=== PATIENT | female | born 1935 | race Caucasian/White ===

== ENCOUNTER → 2016-08-19 | Outpatient (CLI) | payer OTHER ==
[~2016-08-19] MED LIST: ACET325T96 PO; ADVIN50/60 INH; ALBINS/ INH; ASPI325T39 PO; LISI-729 PO; MONT1TAB5 PO; MULT-506 PO; OMAL150S INJ; PRLSR20 PO; SPRIN/30 INH; VNTHFA/IN INH
[2016-08-19 12:21] LABS: BASO % 0.5 %; BASO ABS # 0.04 K/uL (0-0.2); COMPLETE YES; EOS % 3.7 %; HEMATOCRIT 43.8 % (37-47); IG% 0.3 %; LYMPH % 30.4 %; LYMPH ABS # 2.39 K/uL (1.2-3.4); MEAN CELL VOLUME 91.8 fL (80-100); MEAN CORPUSCULAR HEMOGLOBIN 28.9 pg (25-34); MEAN CORPUSCULAR HGB CONC 31.5 g/dl (32-36); MEAN PLATELET VOLUME 10.2 fL (7.4-10.4); MONO % 7.1 %; PLATELET COUNT 294 K/uL (130-400); RED BLOOD COUNT 4.77 M/uL (4.2-5.4); WHITE BLOOD COUNT 7.85 K/uL (4.8-10.8)
[2016-08-19 13:42] LABS: CALCIUM 8.7 mg/dl (8.5-10.1)
[2016-08-19 13:51] LABS: ALT/SGPT 19 U/L (12-78); AST/SGOT 18 U/L (15-37); BLOOD UREA NITROGEN 15 mg/dl (7-18); BUN/CREATININE RATIO 15.4 (10-20); CARBON DIOXIDE 31 mmol/L (21-32); CHLORIDE 106 mmol/L (98-107); CHOLESTEROL 241 mg/dl (0-200); CREATININE 0.95 mg/dl (0.60-1.20); GLUCOSE 84 mg/dl (70-99); POTASSIUM 4.3 mmol/L (3.5-5.1); SODIUM 142 mmol/L (136-145); TRIGLYCERIDES 168 mg/dl (0-150); VERY LOW DENSITY LIPOPROT CALC 34 mg/dl
[2016-08-19 14:01] LABS: ALB/GLOB RATIO 0.7 (0.9-2); ALKALINE PHOSPHATASE 80 U/L (45-117); CHOLESTEROL/HDL RATIO 4.7; HDL CHOLESTEROL 51 mg/dl; LDL CHOLESTEROL CALCULATED 156 mg/dl
== END | disposition home or self-care (01) ==
LOC: C.LABPVFM 08:08
PROVIDERS: ATTEND Neuromusculoskeletal Medicine & OMM
DX: Z00.00 Encounter for general adult medical examination without abnormal findings (principal); I10 Essential (primary) hypertension

== ENCOUNTER → 2017-01-12 | Outpatient (CLI) | payer OTHER ==
[2017-01-12 18:00] LABS: MANUAL MICROSCOPIC REQUIRED? YES; URINE APPEARANCE TURBID (CLEAR); URINE BILIRUBIN NEG (NEG); URINE COLOR RED; URINE NITRITE NEG (NEG); URINE SPECIFIC GRAVITY 1.025 (1.000-1.030); UROBILINOGEN NEG (NEG)
[2017-01-12 18:03] LABS: REVIEW REQ? NO
[2017-01-12 18:28] LABS: URINE BACTERIA NEG (NEG); URINE RBC >30 /hpf (0-4)
== END | disposition home or self-care (01) ==
LOC: C.LABPVFM 12:53
PROVIDERS: ATTEND Family Medicine Adult Medicine
DX: R31.9 Hematuria, unspecified (principal)

== ENCOUNTER → 2017-01-23 | Outpatient (CLI) | payer OTHER ==
[~2017-01-23] MED LIST changes: -ACET325T96 PO; -ADVIN50/60 INH; -ALBINS/ INH; -ASPI325T39 PO; -LISI-729 PO; -MONT1TAB5 PO; -MULT-506 PO; -OMAL150S INJ; +OPTIRAY 320 IV PRN; -PRLSR20 PO; -SPRIN/30 INH; -VNTHFA/IN INH
--- NOTE | 2017-01-23 09:58 | DIAGNOSTIC IMAGING REPORT ---
ABD/PELVIS COMBO CT DOSE: 752.76 mGy.cm HISTORY: Hematuria 01/20/17 1430 CREA 0.89 TECHNIQUE: Multiaxial CT images of the abdomen and pelvis were performed pre and post intravenous contrast enhancement. A dose lowering technique was utilized adhering to the principles of ALARA. COMPARISON STUDY: None. FINDINGS: Multinodular appearance to the lung bases. Multiple nodules of the right base are present up to 9 mm. Combination of atelectasis and nodularity of the left base is present with nodules measuring 10 mm. These nodules are slightly progressive in terms of size as well as number compared to a CT of the chest dated 07/22/2007. The unenhanced component of the abdomen and pelvis shows no abnormal calcifications. There are several calcified uterine fibroids. The enhanced component of the study demonstrates the liver spleen and pancreas to enhance uniformly and kidneys also enhance uniformly with no significant space-occupying lesion. Ureters normal in course and caliber. Bowel pattern is considered nonobstructive. There is no significant perihepatic adenopathy or upper abdominal/retroperitoneal adenopathy. Evaluation of the pelvis again shows the presence of several partially calcified uterine fibroids. These measure a maximum of 2.5 cm. The bladder shows presence of a nodular and/or polypoid lesion measuring 2.6 x 2.5 cm, apparently originating from the anterior bladder wall slightly to the right of midline. Cystoscopy is suggested to exclude any possibility of a neoplastic lesion. Bowel pattern within the pelvis is remarkable for chronic sigmoid diverticulosis. There is no evidence for acute diverticulitis. Delayed images of the bladder suggests the possibility of a second 1 cm polypoid lesion in the posterior basilar bladder wall. There is no significant ascites. There are mild degenerative changes of the osseous structures. Several small benign bone islands. Mild degenerative changes of the lumbar spine is present. IMPRESSION: 1. 1 and possibly 2 polypoid lesions of the bladder. 2. Cystoscopy is recommended to exclude a neoplastic process. 3. The abdomen and pelvis is otherwise negative. 4. Somewhat progressive basilar pulmonary nodularity compared to a prior CT of the chest dated 2007. 5. A repeat CT of the chest is indicated for adequate comparison to the prior exams, to exclude progressive pulmonary nodularity. The above report was generated using voice recognition software. It may contain grammatical, syntax or spelling errors. Electronically signed by: Jeremy Berg M.D. 01/23/2017 9:57 AM Dictated Date/Time: 01/23/2017 9:46 AM
== END | disposition home or self-care (01) ==
LOC: C.CTS 09:15
PROVIDERS: ATTEND Family Medicine Adult Medicine
DX: R31.0 Gross hematuria (principal)

== ENCOUNTER → 2017-01-27 | Outpatient (CLI) | payer OTHER ==
[~2017-01-27] MED LIST changes: +ACET325T96 PO; +ADVIN50/60 INH; +ALBINS/ INH; +ASPI325T39 PO; +LISI-729 PO; +MONT1TAB5 PO; +MULT-506 PO; +OMAL150S INJ; -OPTIRAY 320 IV PRN; +PRLSR20 PO; +SPRIN/30 INH; +VNTHFA/IN INH
--- NOTE | 2017-01-27 16:07 | DIAGNOSTIC IMAGING REPORT ---
(CHEST) THORAX WITHOUT CT DOSE: 289.60 mGy.cm HISTORY: Follow-up pulmonary nodules. TECHNIQUE: Multiaxial CT images of the chest were performed without contrast. A dose lowering technique was utilized adhering to the principles of ALARA. COMPARISON: Chest 07/22/2007. FINDINGS: No pleural effusions. No pneumothorax. The central airways are patent. Mild bronchial wall thickening. Scattered patchy groundglass airspace opacities within the lungs persist. Increase in the tree-in-bud nodular opacities within the lung bases as well as multiple additional scattered pulmonary nodules. For comparative purposes a dominant nodule within the right upper lobe currently measures 1 cm, previous measuring 6 mm. No suspicious lytic or blastic osseous lesions. No mediastinal or hilar lymphadenopathy. The heart is normal in size. The visualized unenhanced liver, spleen, and adrenal glands are unremarkable. IMPRESSION: Slight increase in size and number of the multiple bilateral pulmonary nodules. Given the slow growth over a 9 year time interval, this is unlikely to represent a neoplastic process. There has also been increase in the basilar predominant tree-in-bud nodular opacities and persistent patchy groundglass airspace opacities. Therefore, these findings favor an infectious/inflammatory change. Electronically signed by: Quinten Cueto M.D. 01/27/2017 4:06 PM Dictated Date/Time: 01/27/2017 3:58 PM
== END | disposition home or self-care (01) ==
LOC: C.CTS 15:35
PROVIDERS: ATTEND Family Medicine Adult Medicine
DX: R91.8 Other nonspecific abnormal finding of lung field (principal)

== ENCOUNTER 2017-02-03 09:28 | Day surgery (SDC) | payer OTHER ==
[2017-01-29 09:28] VITALS: BMI 28.0
--- NOTE | 2017-01-29 09:52 | PAT Medication Instructions ---
Service Date Jan 29, 2017. Current Home Medication List Acetaminophen Tab (Tylenol), 325 MG PO PRN Albuterol Sulf (Proventil 0.083% 2.5MG/3ML), 2.5 MG INH Q4H PRN for RN Aspirin (Aspirin Ec), 325 MG PO PRN Fluticasone Prop/Salmeterol (Advair Diskus 500/50 60 Dose), 1 PUFF INH BID Lisinopril (Prinivil), 5 MG PO QAM Montelukast Sodium (Montelukast Sodium), 1 TAB PO QAM Multivitamin (Multivitamin), 1 TAB PO QAM Omalizumab (Xolair), 375 MG INJ [id number] Omeprazole (Prilosec), 20 MG PO QAM Tiotropium [place] (Spiriva Handihaler), 1 CAP INH QAM Medication Instructions For Your Scheduled Surgery - Continue as directed: Omalizumab (Xolair), 375 MG INJ [id number] - Hold the following medications 10 days prior to surgery per surgeon's instructions: Aspirin (Aspirin Ec), 325 MG PO PRN - Hold the following medications the morning of surgery: Lisinopril (Prinivil), 5 MG PO QAM Multivitamin (Multivitamin), 1 TAB PO QAM - Take the following medications the morning of surgery with a sip of water: Acetaminophen Tab (Tylenol), 325 MG PO PRN (may take if needed up to 4 hours prior to surgery) Albuterol Sulf (Proventil 0.083% 2.5MG/3ML), 2.5 MG INH Q4H PRN Fluticasone Prop/Salmeterol (Advair Diskus 500/50 60 Dose), 1 PUFF INH BID Albuterol Inhaler (use if needed; BRING TO HOSPITAL) Omeprazole (Prilosec), 20 MG PO QAM Tiotropium [place] (Spiriva Handihaler), 1 CAP INH QAM Montelukast Sodium (Montelukast Sodium), 1 TAB PO QAM - Take the following medications as scheduled the night before surgery: Acetaminophen Tab (Tylenol), 325 MG PO PRN Albuterol Sulf (Proventil 0.083% 2.5MG/3ML), 2.5 MG INH Q4H PRN Fluticasone Prop/Salmeterol (Advair Diskus 500/50 60 Dose), 1 PUFF INH BID Albuterol Inhaler If you have any questions please call us at [phone] or [phone] or [phone]
[2017-01-29 10:36] LABS: BASO % 0.3 %; BASO ABS # 0.02 K/uL (0-0.2); COMPLETE YES; EOS % 3.3 %; HEMATOCRIT 37.8 % (37-47); IG% 0.6 %; LYMPH % 30.5 %; LYMPH ABS # 2.12 K/uL (1.2-3.4); MEAN CELL VOLUME 92.4 fL (80-100); MEAN CORPUSCULAR HEMOGLOBIN 29.1 pg (25-34); MEAN CORPUSCULAR HGB CONC 31.5 g/dl (32-36); MEAN PLATELET VOLUME 9.7 fL (7.4-10.4); MONO % 8.1 %; NEUT % 57.2 %; PLATELET COUNT 292 K/uL (130-400); RED BLOOD COUNT 4.09 M/uL (4.2-5.4); WHITE BLOOD COUNT 6.95 K/uL (4.8-10.8)
[2017-01-29 10:43] LABS: BUN/CREATININE RATIO 16.7 (10-20); CALCIUM 8.6 mg/dl (8.5-10.1); CREATININE 0.98 mg/dl (0.60-1.20); POTASSIUM 3.9 mmol/L (3.5-5.1)
[2017-01-29 11:12] LABS: URINE APPEARANCE CLEAR (CLEAR); URINE BILIRUBIN NEG (NEG); URINE COLOR YELLOW; URINE EPITHELIAL CELL AUTO 20-30 /lpf (0-5); URINE NITRITE NEG (NEG); URINE PH 5.5 (4.5-7.5); URINE SPECIFIC GRAVITY 1.018 (1.000-1.030); UROBILINOGEN NEG (NEG)
[2017-01-29 11:16] LABS: MANUAL MICROSCOPIC REQUIRED? NO; REVIEW REQ? NO
[~2017-02-03] VITALS: Ht 157.5 cm; Wt 69.9 kg
[~2017-02-03 09:28] MED LIST changes: +CIPROFLOXACIN / D5W 400 MG IV SCH; +LACTATED RINGER'S 1000ML 1,000 ML IV SCH
[2017-02-03 09:54] VITALS: BP 155/66; PULSE 85; TEMP 36.5; O2SAT 94; Ht 157.5 cm; Wt 69.9 kg
[2017-02-03] MEDS ORDERED: HYDROmorphone INJ 1 MG/ML SYR IV PRN (10:00)
[2017-02-03] MEDS ORDERED: FENTANYL CITRATE INJ 50 MCG/1 ML 2 ML VIAL IV PRN (10:00)
[2017-02-03] MEDS ORDERED: EpHEDrine SULFATE INJ 50 MG/ML AMP IV PRN (10:00)
[2017-02-03] MEDS ORDERED: ATROPINE SULFATE 0.1 MG/ML 5ML SYR IV PRN (10:00)
[2017-02-03] MEDS ORDERED: ONDANSETRON INJ 2 MG/ML 2 ML VIAL IV PRN (10:00)
[2017-02-03] MEDS ORDERED: FENTANYL CITRATE INJ 50 MCG/1 ML 2 ML VIAL ONE (10:44)
--- NOTE | 2017-02-03 12:14 | History & Physical Bridge Note ---
H&P Re-Evaluation Bridge Note: I have examined the patient, reviewed the History & Physical and in the interval since the performance of the History & Physical I have noted the following changes of clinical significance: No changes noted
[2017-02-03] MEDS ORDERED: PROPOFOL IV EMULSION 10 MG/ML 20 ML VIAL IV ONE (12:51)
[2017-02-03] MEDS ORDERED: DEXAMETHASONE SOD INJ 4 MG/ML VIAL ONE (12:51)
[2017-02-03] MEDS ORDERED: LIDOCAINE HCL 2% 2 ML VIAL (20MG/ML) ONE (12:51)
[2017-02-03] MEDS ORDERED: ONDANSETRON INJ 2 MG/ML 2 ML VIAL ONE (12:51)
[2017-02-03] MEDS ORDERED: BELLADONNA/OPIUM SUPP 60 MG SUPP PR ONE ×2 (13:04→13:12)
[2017-02-03] MEDS ORDERED: PHENYLEPHRINE 100MCG/ML 5ML SYR ONE (13:06)
[2017-02-03] MEDS ORDERED: MITOMYCIN FOR INJ 40 MG in SYRINGE 40 ML IR ONE (13:15)
[2017-02-03] MEDS ORDERED: SODIUM CHLORIDE 0.9% 1000ML 1,000 ML IV SCH (13:22)
--- NOTE | 2017-02-03 13:22 | Discharge Instructions ---
Discharge Instructions Date of Service Feb 03, 2017. Admission Reason for Admission: Malignant Neoplasm Of Bladder Discharge Discharge Diagnosis / Problem: Bladder tumors Discharge Goals Goal(s): Decrease discomfort, Improve function, Increase independence, Improve disease control, Prevent Disease Progression Activity Recommendations Activity Limitations: resume your previous activity Lifting Limitations: none Exercise/Sports Limitations: none May Resume Sexual Activity: when tolerated Shower/Bathe: no limitations Driving or Machine Use: resume 1 day after discharge . Instructions / Follow-Up Instructions / Follow-Up Please keep your previously scheduled follow up appointment with Dr. Garza Current Hospital Diet Patient's current hospital diet: Discharge Diet Recommended Diet: Regular Diet Procedures Procedures Performed: Transuretheral resection of bladder tumor. Pending Studies Studies pending at discharge: no Medical Emergencies . Who to Call and When: Medical Emergencies: If at any time you feel your situation is an emergency, please call 911 immediately. . Non-Emergent Contact Non-Emergency issues call your: Urologist Call Non-Emergent contact if: you have a fever, temperature is above 101.5, your pain is not controlled, your pain is worsening . . "Provider Documentation" section prepared by Jackson Fraser. . VTE Core Measure Inpt VTE Proph given/why not?: Treatment not indicated
[2017-02-03] MEDS ORDERED: ACETAMINOPHEN 325 MG TAB PO PRN (13:30)
[2017-02-03] MEDS ORDERED: OXYCODONE/ACETAMINOPHEN 5-325 TAB PO PRN ×2 (13:30)
--- NOTE | 2017-02-03 13:33 | [facility] Operative Report ---
Operative Report Operative Date Feb 03, 2017. Pre-Operative Diagnosis Malignant neoplasm of bladder Post-Operative Diagnosis Same Procedure(s) Performed Transuretheral resection of bladder tumor. (Large) Surgeon Dr Garza Knitter Hand Surgeon(s) none Estimated Blood Loss 5 ml Findings 1 very large tumor (5cm+) in the upper aspect of the posterior wall; smaller tumor (3cm)on the mid posterior wall; innumerable tiny tumor scattered around the posterior and lateral sharpe Specimens A: Bladder tumor. Drains 16 Sami Champagne catheter Anesthesia Gen. Complication(s) None Disposition Recovery Room / PACU (stable) Indications Hematuria and bladder tumor Description of Procedure Patient was identified in the preoperative holding area, appropriate informed consents were reviewed and completed, and the patient was transported to the operating suite. Upon arrival she received appropriate preoperative antibiotics in the form of ciprofloxacin. Adequate general anesthesia was achieved, and she was placed in dorsal lithotomy position where she was sterilely prepped and draped in standard fashion. I began the case by passing a 24 Sami resectoscope with 30 lens and visual obturator. Full inspection of the bladder was subsequent carried out utilizing both a 30 and 70 lens. Tumors were encountered immediately. There was a large papillary tumor from the upper posterior bladder wall. Tumor was at least 5 cm in largest dimension. It was pedunculated with a smaller stalk connecting to the bladder. There is additionally a 3 cm tumor on the posterior bladder wall as well as numerous small or tumors scattered around the bladder. After my inspection, photographs were taken, and I proceeded to resect these tumors. I first resected the smaller posterior wall tumor, followed by resection of the larger tumor closer to the dome of the bladder. There is excellent hemostasis after the resection of both of these tumors. I then proceeded to resect and fulgurated the largest of the remaining tiny tumors. After treating all visible disease, I concluded the resecting and fulgurated portion of the case. Hemostasis remained excellent, I emptied her bladder and placed a 16 Sami Champagne catheter. She subsequently had 40 mg mitomycin-C introduced into her bladder. She was reversed from anesthesia and taken to the PACU in stable condition. Were no complications. Specimen: Bladder tumor for routine pathology I attest to the content of the Intraoperative Record and any orders documented therein. Any exceptions are noted below.
--- NOTE | 2017-02-03 13:53 | Anesthesiology Progress Note ---
Anesthesia Post Op Note Date & Time Feb 03, 2017 at 13:52 Vital Signs Pain Intensity: 0 Vital Signs Past 12 Hours Date Time Temp Pulse Resp B/P (MAP) Pulse Ox O2 Delivery O2 Flow Rate FiO2 02/03/17 13:45 36.4 79 16 165/68 94 Room Air 02/03/17 13:35 70 16 158/64 100 Oxymask 10 02/03/17 13:25 76 14 164/68 100 Oxymask 10 02/03/17 13:17 36.4 85 16 169/72 100 Oxymask 10 02/03/17 09:54 36.5 85 20 155/66 (95) 94 Room Air Notes Mental Status: alert / awake / arousable, participated in evaluation Pt Amnestic to Procedure: Yes Nausea / Vomiting: adequately controlled Pain: adequately controlled Airway Patency, RR, SpO2: stable & adequate BP & HR: stable & adequate Hydration State: stable & adequate Anesthetic Complications: no major complications apparent
[2017-02-03] MEDS ORDERED: LABETALOL HCL IV 5 MG/ML 20ML IV ONE (14:04)
[2017-02-03] MEDS ORDERED: NURSING VERBAL MED ORDER ONE (14:05)
[2017-02-03 14:30] VITALS: BP 159/76; PULSE 78; TEMP 36.7; O2SAT 94
[2017-02-03 15:00] VITALS: BP 146/58; PULSE 77; O2SAT 94
[2017-02-03 15:30] VITALS: BP 144/70; PULSE 75; TEMP 36.5; O2SAT 94
== END 2017-02-03 15:30 | disposition home or self-care (01) ==
LOC: C.ACU 09:28
PROVIDERS: ATTEND Urology
DX: C67.9 Malignant neoplasm of bladder, unspecified (principal); J45.909 Unspecified asthma, uncomplicated; J44.9 Chronic obstructive pulmonary disease, unspecified; I10 Essential (primary) hypertension; E78.5 Hyperlipidemia, unspecified; Z79.899 Other long term (current) drug therapy; Z88.0 Allergy status to penicillin; Z98.41 Cataract extraction status, right eye; Z98.42 Cataract extraction status, left eye; Z82.49 Family history of ischemic heart disease and other diseases of the circulatory system

== ENCOUNTER → 2017-02-23 | Outpatient (CLI) | payer OTHER ==
[~2017-02-23] MED LIST changes: -CIPROFLOXACIN / D5W 400 MG IV SCH; -LACTATED RINGER'S 1000ML 1,000 ML IV SCH
[2017-02-23 12:21] LABS: BASO % 0.5 %; BASO ABS # 0.04 K/uL (0-0.2); COMPLETE YES; EOS % 2.2 %; HEMATOCRIT 40.5 % (37-47); IG% 0.2 %; LYMPH % 25.1 %; LYMPH ABS # 2.16 K/uL (1.2-3.4); MEAN CELL VOLUME 92.3 fL (80-100); MEAN CORPUSCULAR HEMOGLOBIN 29.4 pg (25-34); MEAN CORPUSCULAR HGB CONC 31.9 g/dl (32-36); MEAN PLATELET VOLUME 9.9 fL (7.4-10.4); MONO % 7.9 %; NEUT % 64.1 %; PLATELET COUNT 334 K/uL (130-400); RED BLOOD COUNT 4.39 M/uL (4.2-5.4); WHITE BLOOD COUNT 8.62 K/uL (4.8-10.8)
[2017-02-23 13:17] LABS: BLOOD UREA NITROGEN 14 mg/dl (7-18); BUN/CREATININE RATIO 18.3 (10-20); CALCIUM 8.6 mg/dl (8.5-10.1); CARBON DIOXIDE 31 mmol/L (21-32); CHLORIDE 103 mmol/L (98-107); CREATININE 0.77 mg/dl (0.60-1.20); GLUCOSE 81 mg/dl (70-99); SODIUM 137 mmol/L (136-145)
== END | disposition home or self-care (01) ==
LOC: C.LABSPEC 11:09
PROVIDERS: ATTEND Urology
DX: C67.9 Malignant neoplasm of bladder, unspecified (principal)

== ENCOUNTER 2017-03-17 10:10 | Day surgery (SDC) | payer OTHER ==
[2017-03-06 08:04] VITALS: BMI 28.0
[~2017-03-17] VITALS: Ht 157.5 cm; Wt 69.1 kg
[~2017-03-17 10:10] MED LIST changes: +ACET-1693 PO; -ACET325T96 PO; +ATROPINE SULFATE 0.1 MG/ML 5ML SYR IV PRN; +CIPROFLOXACIN / D5W 400 MG IV SCH; +EpHEDrine SULFATE INJ 50 MG/ML AMP IV PRN; +FENTANYL CITRATE INJ 50 MCG/1 ML 2 ML VIAL IV PRN; +LACTATED RINGER'S 1000ML 1,000 ML IV SCH; +ONDANSETRON INJ 2 MG/ML 2 ML VIAL IV PRN
[2017-03-17 10:48] VITALS: BP 186/84; PULSE 80; TEMP 36.5; O2SAT 93; Ht 157.5 cm; Wt 69.1 kg
[2017-03-17] MEDS ORDERED: FENTANYL CITRATE INJ 50 MCG/1 ML 2 ML VIAL ONE ×2 (11:17→12:53)
[2017-03-17] MEDS ORDERED: LIDOCAINE HCL 2% 2 ML VIAL (20MG/ML) ONE (11:34)
[2017-03-17] MEDS ORDERED: ONDANSETRON INJ 2 MG/ML 2 ML VIAL ONE (11:34)
[2017-03-17] MEDS ORDERED: PROPOFOL IV EMULSION 10 MG/ML 20 ML VIAL IV ONE (11:34)
[2017-03-17] MEDS ORDERED: CIPR-255 PO (11:53)
[2017-03-17] MEDS ORDERED: PHEN95TA14 PO (11:53)
[2017-03-17] MEDS ORDERED: ACET300T3 PO (11:53)
--- NOTE | 2017-03-17 11:55 | Discharge Instructions ---
Discharge Instructions Date of Service Mar 17, 2017. Admission Reason for Admission: Bladder Cancer Discharge Discharge Diagnosis / Problem: Bladder cancer Discharge Goals Goal(s): Decrease discomfort, Improve function, Increase independence, Improve disease control Activity Recommendations Activity Limitations: resume your previous activity Lifting Limitations: none Exercise/Sports Limitations: none May Resume Sexual Activity: when tolerated Shower/Bathe: no limitations Driving or Machine Use: resume 1 day after discharge . Instructions / Follow-Up Instructions / Follow-Up Please keep your previously scheduled follow up appointment with Dr. Garza Current Hospital Diet Patient's current hospital diet: Discharge Diet Recommended Diet: Regular Diet Pending Studies Studies pending at discharge: no Medical Emergencies . Who to Call and When: Medical Emergencies: If at any time you feel your situation is an emergency, please call 911 immediately. . Non-Emergent Contact Non-Emergency issues call your: Urologist Call Non-Emergent contact if: you have a fever, temperature is above 101.5 . . "Provider Documentation" section prepared by Jackson Fraser. . VTE Core Measure Inpt VTE Proph given/why not?: Treatment not indicated [place] Drug Monitoring Program Search Results: patient reviewed within database, no issues identified
[2017-03-17] MEDS ORDERED: DEXAMETHASONE SOD INJ 4 MG/ML VIAL ONE (12:27)
[2017-03-17] MEDS ORDERED: PHENAZOPYRIDINE HCL 200 MG TAB PO STA (13:01)
[2017-03-17] MEDS ORDERED: SODIUM CHLORIDE 0.9% 1000ML 1,000 ML IV SCH (13:01)
--- NOTE | 2017-03-17 13:06 | [facility] Operative Report ---
Operative Report Operative Date Mar 17, 2017. Pre-Operative Diagnosis Bladder Cancer Post-Operative Diagnosis Same Procedure(s) Performed Cystoscopy, Bladder Biopsies, Fulguration Surgeon Dr. Garza Supervisor Diagnostic Surgeon(s) none Estimated Blood Loss 0 ml Findings 3 prior TUR sites healing without definitive evidence of recurrence. One additional site on the right lateral wall concerning for new tumor. Specimens A. Right upper lateral wall B. Right Lateral Wall c. Posterior wall Anesthesia Gen Complication(s) None Disposition Recovery Room / PACU (stable) Indications T1 bladder tumor resected in January Description of Procedure The patient was identified in the preoperative holding area, appropriate informed consents were reviewed and completed and the patient was transported to the operating suite. Upon arrival, she received appropriate preoperative antibiotics the form of ciprofloxacin. Adequate general anesthesia was achieved , and she was placed in dorsal lithotomy position. After sterile prep and drape , I began the case by passing a 24 [place] resectoscope with 30 lens and visual obturator. Of note, this patient had a T1 bladder tumor resected in mid- January and is returning for a second look at this time. 3 sites of prior resection were medially identified. These were in the upper right bladder wall x2 and the mid posterior wall. There additionally appear to be a site on the right lateral wall closer to the trigone concerning for a new tumor. Biopsy forcep was passed and each of these sites were biopsied - to pieces taken from each location. The specimens were labeled individually and passed off the table for pathology. I then passed a button electrode and fulgurated the base of all of the sites. There was excellent hemostasis, and complete inspection with 30 and 70 lenses at the conclusion of the case revealed no evidence of other tumors. She was subsequently extubated and taken to the PACU in stable condition. I attest to the content of the Intraoperative Record and any orders documented therein. Any exceptions are noted below.
[2017-03-17] MEDS ORDERED: ACETAMINOPHEN 325 MG TAB PO PRN (13:15)
[2017-03-17] MEDS ORDERED: OXYCODONE/ACETAMINOPHEN 5-325 TAB PO PRN ×2 (13:15)
[2017-03-17 13:34] VITALS: BP 198/98; PULSE 81; TEMP 36.4; O2SAT 92
[2017-03-17 14:07] VITALS: BP_SYST 205; BP_SYST 215; BP_DIAS 95; BP_DIAS 98; PULSE 88; TEMP 36.3; O2SAT 93
[2017-03-17 14:17] VITALS: BP_SYST 215; BP_SYST 218; BP_DIAS 104; BP_DIAS 80; PULSE 85; O2SAT 85; O2SAT 98
[2017-03-17] MEDS ORDERED: HydrALAZINE HCL 20 MG/ML VIAL ONE (14:27)
--- NOTE | 2017-03-17 14:28 | Anesthesiology Progress Note ---
Anesthesia Post Op Note Date & Time Mar 17, 2017 at 14:28 Vital Signs Pain Intensity: 2 Vital Signs Past 12 Hours Date Time Temp Pulse Resp B/P (MAP) Pulse Ox O2 Delivery O2 Flow Rate FiO2 03/17/17 13:27 79 20 181/93 95 Room Air 03/17/17 13:20 36.6 83 18 172/84 92 Room Air 03/17/17 13:10 77 20 175/78 100 Oxymask 10 03/17/17 13:00 76 20 175/77 100 Oxymask 10 03/17/17 12:51 36.2 84 20 194/82 100 Oxymask 10 03/17/17 10:48 36.5 80 18 186/84 (118) 93 Room Air Notes Mental Status: alert / awake / arousable, participated in evaluation Pt Amnestic to Procedure: Yes Nausea / Vomiting: adequately controlled Pain: adequately controlled Airway Patency, RR, SpO2: stable & adequate BP & HR: stable & adequate Hydration State: stable & adequate Anesthetic Complications: no major complications apparent
[2017-03-17] MEDS ORDERED: NURSING VERBAL MED ORDER ONE (14:30)
[2017-03-17 14:46] VITALS: BP 221/99
[2017-03-17 15:13] VITALS: BP 165/75; PULSE 98; TEMP 36.3; O2SAT 93
== END 2017-03-17 15:21 | disposition home or self-care (01) ==
LOC: C.ACU 10:10
PROVIDERS: ATTEND Urology
DX: N30.20 Other chronic cystitis without hematuria (principal); Z85.51 Personal history of malignant neoplasm of bladder; I10 Essential (primary) hypertension; J44.9 Chronic obstructive pulmonary disease, unspecified; K21.9 Gastro-esophageal reflux disease without esophagitis; K44.9 Diaphragmatic hernia without obstruction or gangrene; Z79.82 Long term (current) use of aspirin; Z79.899 Other long term (current) drug therapy

== ENCOUNTER → 2017-03-31 | Outpatient (CLI) | payer OTHER ==
[~2017-03-31] MED LIST changes: -ACET-1693 PO; +ACET-749 PO; +ACET325T96 PO; -ATROPINE SULFATE 0.1 MG/ML 5ML SYR IV PRN; +CIPR-255 PO; -CIPROFLOXACIN / D5W 400 MG IV SCH; -EpHEDrine SULFATE INJ 50 MG/ML AMP IV PRN; -FENTANYL CITRATE INJ 50 MCG/1 ML 2 ML VIAL IV PRN; -LACTATED RINGER'S 1000ML 1,000 ML IV SCH; -ONDANSETRON INJ 2 MG/ML 2 ML VIAL IV PRN; +PHEN95TA14 PO
--- NOTE | 2017-04-01 15:08 | MAMMOGRAPHY REPORT ---
BILATERAL DIGITAL SCREENING MAMMOGRAM TOMOSYNTHESIS WITH CAD: 03/31/2017 CLINICAL HISTORY: Routine screening. Patient has no complaints. TECHNIQUE: Breast tomosynthesis in addition to standard 2D mammography was performed. Current study was also evaluated with a Computer Aided Detection (CAD) system. COMPARISON: Comparison is made to exams dated: 03/11/2016 mammogram, 02/15/2015 mammogram, 02/13/2014 mammogram, 01/24/2013 mammogram, 11/25/2011 mammogram, and 11/20/2010 mammogram - [facility]. BREAST COMPOSITION: There are scattered areas of fibroglandular density in both breasts. FINDINGS: There are scattered stable benign-appearing round and rim calcifications. No suspicious ma ss, architectural distortion or cluster of suspicious microcalcifications is seen. IMPRESSION: ACR BI-RADS CATEGORY 1: NEGATIVE There is no mammographic evidence of malignancy. A 1 year screening mammogram is recommended. The pa tient will receive written notification of the results. Approximately 10% of breast cancers are not detected with mammography. A negative mammographic report should not delay biopsy if a clinically suggestive mass is present. Maryellen Garza M.D. ay/:03/31/2017 14:30:09 [place] Operator: Vanita Ricardo, [facility] letter sent: Normal 1/2 BI-RADS Code: ACR BI-RADS Category 1: Negative
== END | disposition home or self-care (01) ==
LOC: C.MAMM 11:40
PROVIDERS: ATTEND Family Medicine
DX: Z12.31 Encounter for screening mammogram for malignant neoplasm of breast (principal)

== ENCOUNTER 2024-03-13 10:03 | Observation (INO) ==
--- NOTE | 2024-03-13 10:08 | Emergency Department Note ---
Impression & Plan Atrial fibrillation with rapid ventricular response, Syncope and collapse, Elevated troponin ED Provider Note Name: PARUL SANTOYO Age: 88 Sex: Female Arrives Via: Walk-In Informant: Patient ED Provider: Jared Coronado MD Chief Complaint: Syncope Impression: As per impressions above Medical Decision Makin-year-old female arrives for evaluation following a syncopal event. Patient is visiting her and had multiple syncopal events witnessed by nursing staff. She was brought to critical care bay. Initial blood pressure was quite low and she was started on a liter of fluid. Her heart rate was noted to be in the 150s and A-fib RVR. She was given IV Lopressor as blood pressure had improved with IV fluids. Heart rate slowly starting to improve requiring second dose of Lopressor. Patient feeling significantly better. A CT of the head was obtained which is unremarkable. Laboratory workup reveals an elevated troponin. Patient is not with any chest pain or discomfort. This may just be rate related. Will hold off on heparin as patient is on Eliquis and defer to hospitalist service. Patient comfortable with plan for hospitalization. I do not feel symptoms are consistent with PE. Suspect episode is secondary to not eating food, not taking her medications this morning as well as the stressor of being in the hospital and then requiring transfer to higher level of care. Triage/Nursing Notes reviewed by Me Differential:Vasovagal event, dehydration, infection, hypoglycemia, electrolyte abnormalities, cardiac sources, intracerebral event, pulmonary embolism, seizure, toxicologic, neurologic, as well as other pathologies. Vital Signs: reviewed and remarkable for tachy, hypotension Interventions: Lopressor 5 mg IV x 2, normal saline bolus 1 L IV Labs:ED labs Reviewed by me and remarkable for elevated troponin Imagin view chest x-ray no infiltrate or effusion appreciated. CT of the head without contrast as per my interpretation no hemorrhage or mass effect appreciated. Confirmed with radiologist. EKG:As per my interpretation. Indication syncope. Atrial fibrillation at 143 bpm QTc of 463. There is no overt ischemia appreciated. When compared to EKG of January 20, 2022 there is no longer normal sinus rhythm Cardiac/Tele Monitoring: Cardiac Monitoring: An Order was placed for continuous cardiac monitoring. The monitor shows a rate of 14 with a afib rvr rhythm. Consults:Dr Frederick GALLEGOS Hospitalist service discussed case and will bring in for further management Plan: Disposition:Hospitalization. Condition: Good History of Present Illness: 88-year-old female arrives for evaluation of syncope. Patient was visiting with her who is currently an ER patient. She had stepped out of the room to have x-ray done on her when she had a syncopal event and collapsed on the floor with occupational health nursing director. Patient came to relatively quickly but then had multiple further syncopal events. Patient reported pale and confused. Resolved by the time she was laid in the bed. Taken to trauma bay for further evaluation. Patient states she feels a bit lightheaded. She admits she had no breakfast. Admits she has been a bit stressed. Denies any current chest pain, shortness of breath, back pain, abdominal pain, headache, neurologic deficits or other concerning signs or symptoms. No recent falls, trauma, injuries. Denies any recent infectious symptoms. Patient is on Eliquis for history of A-fib. Past Medical History:See Below Home Medications:See Below Allergies:See Below Vitals:Blood Pressure: 80/50, Pulse 150, RR 18, T 36.5C, O2 93% on RA Physical Exam: GENERAL: Patient is pale appearing and in minimal distress. HEAD: AT/NC NECK: nontender, no stepoff RESPIRATORY: No dyspnea. Clear to auscultation and equal bilaterally. CARDIOVASCULAR: tachy.No murmur appreciated. GASTROINTESTINAL: Abdomen soft, non-tender, no peritonitis. EXTREMITIES: Normal motion all extremities, no cyanosis, no edema. NEUROLOGIC: Alert and oriented. No focal neurologic deficits appreciated SKIN: No rash, no jaundice, no diaphoresis. PSYCH: Appropriate GCS: 15 ED Course: Times/Reassessments: Patient significantly improved with IV fluids and lying back in bed. Heart rate coming down with repeat dosing of Lopressor. Critical Care: I have personally spent 35 minutes of critical care time in the direct management of this patient. Management and evaluation of afib rvr with syncope and elevated troponin. This was a life/limb threatening event. This 35 minutes is in excess of all separately billable procedures. Jared Coronado MD Past Med/Surg History Problem List (Updated 03/13/24 @ 17:05 by Jared Coronado MD) Elevated troponin (Acute) Syncope and collapse (Acute) Atrial fibrillation with rapid ventricular response (Acute) Syncopal episodes Acute URI of multiple sites Encounter for pre-operative examination Hematuria Chronic anticoagulation Pain of left lower extremity Right leg pain Swelling of left lower extremity Encounter for examination following treatment at hospital Rapid atrial fibrillation Atrial flutter URI, acute Atrial fibrillation SVT (supraventricular tachycardia) Hypoxia Vitamin D deficiency Bilateral lower extremity edema Cough Palpitations (Acute) Benign hypertension (Acute) Allergic rhinitis Pityriasis rosea (Acute) Osteoporosis (Acute) Multiple pulmonary nodules (Chronic) Malignant tumor of urinary bladder (Chronic) History of basal cell carcinoma (Acute) GERD without esophagitis (Chronic) Dyslipidemia (Chronic) Chronic obstructive pulmonary disease (Chronic) Asthma (Chronic) Medical History Hypertension Carpal tunnel syndrome Surgical History History of carpal tunnel surgery History of bladder surgery Family History Mother Myocardial infarction Denies family history of Ovarian cancer Prostate cancer Bipolar disorder Colorectal cancer Social History Smoking Status: Never smoker Second Hand Exposure: No; Do You Dip or Chew Tobacco: No; Hx Alcohol Use: No Hx Substance Use: No Preferred Language: Italian Communication Ability: Effective Visual Impairment: Limited Hearing Ability: Normal [place] Required: No Beliefs That Will Affect Care: None marital status: Current Living Situation: Spouse Current Living Situation Comment: 2 story house current occupational status: retired How many Children do You have: 2 Feels Safe at Home: Yes Safety Concerns: Feels Safe At This Time Childhood Exposure to Second-Hand Smoke: No Diet: regular caffeine: Yes (Avoids when possible.) during the past year weight has: remained stable Dental Care, Regularly: No Physical Activity Frequency: Daily Seatbelt Use: always Sunscreen Use: Yes Do you think of yourself as: straight/heterosexual Gender Identity: Female Assistive Devices: Denture - Upper, Denture - Lower and Glasses Allergies Allergies Allergy/AdvReac Type Severity Reaction Status Date / Time Penicillins Allergy Severe HIVES, Verified 03/03/24 13:33 SWELLING, SOB Home Meds Previous Rx's Medication Instructions Recorded albuterol sulfate 2.5 mg/3 mL 2.5 mg (3 mL) inhalation QID PRN 06/06/21 (0.083 %) solution for nebulization shortness of breath or wheezing #90 mL nystatin 100,000 unit/gram topical 1 applic topical BID #15 grams 08/27/22 cream losartan 100 mg tablet 100 mg PO DAILY #90 tabs 02/25/23 montelukast 10 mg tablet 10 mg PO DAILY #90 tabs 07/21/23 omeprazole 20 mg capsule,delayed 20 mg PO DAILY #30 caps 08/03/23 release albuterol sulfate 90 mcg/actuation 1 - 2 puff inhalation Q4H PRN 09/21/23 aerosol inhaler shortness of breath or wheezing #6.7 grams omalizumab 150 mg subcutaneous See Rx Instructions .Route 09/23/23 solution (Xolair) .COMPLEX #6 ea hydrochlorothiazide 25 mg tablet 25 mg PO DAILY #90 tabs 10/26/23 fluticasone 500 mcg-salmeterol 50 See Rx Instructions .Route 12/03/23 mcg/dose blistr powdr for .COMPLEX #60 blisters inhalation apixaban 5 mg tablet 5 mg PO BID #180 tabs 02/02/24 tiotropium bromide 18 mcg capsule 1 cap inhalation DAILY #30 02/02/24 with inhalation device (Spiriva inhalations with HandiHaler) atorvastatin 10 mg tablet 10 mg PO QPM #90 tabs 02/03/24 nirmatrelvir 300 mg (150 mg See Rx Instructions PO .COMPLEX 03/03/24 x2)-ritonavir 100 mg tablet,dose #30 ea pack (Paxlovid) prednisone 20 mg tablet See Rx Instructions PO .COMPLEX 03/03/24 #30 tabs metoprolol succinate 100 mg 100 mg PO DAILY #90 tabs 03/11/24 tablet,extended release 24 hr Results & Data (ED) Vital Signs Vital Signs - 24 hr 03/13/24 10:03 03/13/24 10:03 03/13/24 10:03 Temperature 36.9 C Temperature Source Axillary Pulse Rate 138 H Pulse Rate [Apical] 161 H Pulse Rate from SpO2 Sensor Respiratory Rate 24 24 Respiratory Effort / Characteristics Non-Labored Spontaneous Non-Labored Respiratory Depth Normal Normal Blood Pressure 133/80 Blood Pressure [Right Arm] Blood Pressure Mean 97 Blood Pressure Mean [Right Arm] Blood Pressure Position Sitting Pulse Oximetry 90 90 90 Oxygen Delivery Method Room Air Room Air Room Air Sepsis Recent Fever Within 48 Hours No Sepsis New/Unexplained Change in Mental Status Yes Sepsis Action Taken by Nursing Physician Notified 03/13/24 10:10 03/13/24 10:30 03/13/24 10:40 Temperature Temperature Source Pulse Rate Pulse Rate [Apical] 162 H Pulse Rate from SpO2 Sensor Respiratory Rate 18 Respiratory Effort / Characteristics Non-Labored Respiratory Depth Normal Blood Pressure 133/80 86/57 L Blood Pressure [Right Arm] 96/70 L Blood Pressure Mean 95 70 Blood Pressure Mean [Right Arm] 78 Blood Pressure Position Pulse Oximetry 91 Oxygen Delivery Method Room Air Sepsis Recent Fever Within 48 Hours Sepsis New/Unexplained Change in Mental Status Sepsis Action Taken by Nursing 03/13/24 10:42 03/13/24 10:42 03/13/24 10:42 Temperature Temperature Source Pulse Rate 141 H 135 H Pulse Rate [Apical] Pulse Rate from SpO2 Sensor 143 H 125 H Respiratory Rate 14 19 Respiratory Effort / Characteristics Respiratory Depth Blood Pressure 136/81 136/81 136/81 Blood Pressure [Right Arm] Blood Pressure Mean 99 99 99 Blood Pressure Mean [Right Arm] Blood Pressure Position Pulse Oximetry 93 94 Oxygen Delivery Method Room Air Sepsis Recent Fever Within 48 Hours Sepsis New/Unexplained Change in Mental Status Sepsis Action Taken by Nursing 03/13/24 10:44 03/13/24 10:46 03/13/24 10:49 Temperature Temperature Source Pulse Rate 143 H 129 H Pulse Rate [Apical] 117 H Pulse Rate from SpO2 Sensor Respiratory Rate 20 Respiratory Effort / Characteristics Non-Labored Respiratory Depth Normal Blood Pressure 122/85 Blood Pressure [Right Arm] 144/88 H Blood Pressure Mean Blood Pressure Mean [Right Arm] 106 Blood Pressure Position Pulse Oximetry 95 Oxygen Delivery Method Room Air Sepsis Recent Fever Within 48 Hours Sepsis New/Unexplained Change in Mental Status Sepsis Action Taken by Nursing 03/13/24 10:50 03/13/24 11:00 03/13/24 11:18 Temperature Temperature Source Pulse Rate 110 H 99 H 118 H Pulse Rate [Apical] Pulse Rate from SpO2 Sensor 103 H 87 96 H Respiratory Rate 16 17 17 Respiratory Effort / Characteristics Respiratory Depth Blood Pressure 144/88 H 150/108 H 149/89 H Blood Pressure [Right Arm] Blood Pressure Mean 110 122 109 Blood Pressure Mean [Right Arm] Blood Pressure Position Pulse Oximetry 93 93 93 Oxygen Delivery Method Room Air Room Air Room Air Sepsis Recent Fever Within 48 Hours Sepsis New/Unexplained Change in Mental Status Sepsis Action Taken by Nursing 03/13/24 11:22 03/13/24 11:33 Temperature Temperature Source Pulse Rate 119 H 101 H Pulse Rate [Apical] Pulse Rate from SpO2 Sensor 104 H Respiratory Rate 16 Respiratory Effort / Characteristics Respiratory Depth Blood Pressure 149/89 H 141/88 H Blood Pressure [Right Arm] Blood Pressure Mean 105 Blood Pressure Mean [Right Arm] Blood Pressure Position Pulse Oximetry 92 Oxygen Delivery Method Room Air Sepsis Recent Fever Within 48 Hours Sepsis New/Unexplained Change in Mental Status Sepsis Action Taken by Nursing Laboratory Data 03/13/24 10:15 03/13/24 10:15 Lab Results 03/13/24 03/13/24 Range/Units 10:07 10:15 WBC 16.95 H (4.8-10.8) K/ul RBC 5.38 (4.20-5.40) M/uL Hgb 15.4 (12.0-16.0) g/dl Hct 47.2 H (37.0-47.0) % MCV 87.7 (80.0-100.0) fL MCH 28.6 (25.0-34.0) pg MCHC 32.6 (32.0-36.0) g/dL RDW Std Deviation 43.5 (36.4-46.3) fL RDW Coeff of Dali 13.6 (11.5-14.5) % Plt Count 444 H (130-400) K/uL MPV 9.8 (9.4-12.4) fL Immature Gran % (Auto) 0.9 % Neut % (Auto) 75.3 % Lymph % (Auto) 15.3 % [place] % (Auto) 8.0 % Eos % (Auto) 0.4 % Baso % (Auto) 0.1 % Neut # (Auto) 12.76 H (1.40-6.50) K/uL Lymph # (Auto) 2.59 (1.20-3.40) K/uL [place] # (Auto) 1.36 H (0.11-0.59) K/uL Eos # (Auto) 0.07 (0.00-0.50) K/uL Baso # (Auto) 0.02 (0.00-0.20) K/uL Immature Gran # (Auto) 0.15 (0.01-0.20) K/uL Sodium 139 (136-145) mmol/L Potassium 3.6 (3.5-5.1) mmol/L Chloride 97 L (98-107) mmol/L Carbon Dioxide 34 H (21-32) mmol/L Anion Gap 8 (3-11) BUN 51 H (6-23) mg/dl Creatinine 1.51 H (0.6-1.2) mg/dl Est Cr Clr Drug Dosing 22.3 ml/min eGFR 32.84 BUN/Creatinine Ratio 33.8 H (10-20) Glucose 138 H (70-99(Fasting)) mg/dl POC Glucose 129 H (70-99) mg/dl Calcium 9.0 (8.6-10.3) mg/dl Magnesium 2.3 (1.7-2.4) mg/dl Troponin I High Sens 135.3 H* (0-14) pg/ml Procalcitonin 0.44 (0-0.5) ng/ml TSH 3.466 (0.300-4.500) uIu/ml Administered Medications Sodium Chloride (Nss) 1,000 mls @ 80 mls/hr IV .[id number] TOBY Stop: 03/14/24 00:59 Last Admin: 03/13/24 12:48 Dose: 80 mls/hr Documented By: SHER Discontinued Medications Apixaban (Apixaban 5 Mg Tablet) 5 mg PO ONE ONE Stop: 03/13/24 12:23 Last Admin: 03/13/24 12:48 Dose: 5 mg Documented By: SHER Sodium Chloride (Nss) 1,000 mls @ 999 mls/hr IV .Q1H1M ONE Stop: 03/13/24 11:05 Last Infusion: 03/13/24 11:03 Dose: Infused Documented By: Admin: 03/13/24 10:10 Dose: 999 mls/hr Documented By: AL Metoprolol Succinate (Metoprolol Succ 50mg Ext Rel Tab) 50 mg PO NOW STA Stop: 03/13/24 12:19 Last Admin: 03/13/24 12:48 Dose: 50 mg Documented By: SHER Metoprolol Tartrate (Metoprolol Tartrate 1 Mg/Ml Vial) 5 mg IV NOW STA Stop: 03/13/24 10:23 Last Admin: 03/13/24 10:44 Dose: 5 mg Documented By: AL Metoprolol Tartrate (Metoprolol Tartrate 1 Mg/Ml Vial) 5 mg IV NOW STA Stop: 03/13/24 11:13 Last Admin: 03/13/24 11:22 Dose: 5 mg Documented By: SRL Imaging Data Radiologist's Impression: Head CT 03/13/24 10:05 CT head/brain wo con CLINICAL HISTORY: syncope Technique: Contiguous axial CT images of the head were acquired from the base of the skull to the vertex without intravenous contrast administration. Images were viewed in brain, subdural and bone windows. Automated dose lowering techniques and/or adjustment according to patient size were utilized for this exam. Comparison: None available at the time of this dictation. Findings: The ventricles, basal cisterns, and cerebral sulci are normal. There is no acute intracranial hemorrhage or evidence of acute territorial infarction. Neither mass effect, shift of the midline structures, nor abnormal extra-axial fluid collections are shown. Left maxillary sinus disease is noted. The orbits appear normal. There are no acute fractures of the calvaria or scalp swelling. Impression: No acute intracranial hemorrhage, no evidence of acute territorial infarction or other acute intracranial disease process. ACT 112: Negative or not required by law. Electronically signed by: Maximo Venegas M.D. 03/13/2024 10:57 AM Chest X-Ray 03/13/24 10:06 XR chest 1V portable CLINICAL HISTORY: syncope TECHNIQUE: Single frontal radiograph of the chest was obtained. Comparison: Comparison is made to chest radiograph 01/20/2022 FINDINGS: No lines and tubes are seen. Calcified aortic knob is seen. Right lower lung airspace opacity is seen. No evidence of pleural effusion or pneumothorax. IMPRESSION: Bilateral airspace opacity. This may represent atelectasis, pneumonia, and/or aspiration. ACT 112: Negative or not required by law. Electronically signed by: Maximo Venegas M.D. 03/13/2024 10:24 AM Discharge Plan Visit Data Chief Complaint: Syncope Stated Complaint: DIZZINESS, SYNCOPE ED Provider: Jared Coronado Discharge Problem: Atrial fibrillation with rapid ventricular response, Syncope and collapse, Elevated troponin Patient Disposition: Admitted As Inpatient Discharge Instructions Interventions: ED Discharge Assessment Last Done: 03/13/24 15:54
[2024-03-13] MEDS: SODIUM CHLORIDE 0.9% 1,000 ML IV ONE (10:10)
--- NOTE | 2024-03-13 10:25 | XRay Report ---
XR chest 1V portable CLINICAL HISTORY: syncope TECHNIQUE: Single frontal radiograph of the chest was obtained. Comparison: Comparison is made to chest radiograph 01/20/2022 FINDINGS: No lines and tubes are seen. Calcified aortic knob is seen. Right lower lung airspace opacity is seen . No evidence of pleural effusion or pneumothorax. IMPRESSION: Bilateral airspace opacity. This may represent atelectasis, pneumonia, and/or aspiration. ACT 112: Negative or not required by law. Electronically signed by: Maximo Venegas M.D. 03/13/2024 10:24 AM
[2024-03-13 10:31] LABS: Basophils # (auto) 0.02 K/uL (0.00-0.20); Basophils % (auto) 0.1 %; Eosinophils # (auto) 0.07 K/uL (0.00-0.50); Eosinophils % (auto) 0.4 %; Hematocrit (blood only) 47.2 % (37.0-47.0); Hemoglobin 15.4 g/dl (12.0-16.0); Immature Granulocytes # (auto) 0.15 K/uL (0.01-0.20); Immature Granulocytes % (auto) 0.9 %; Lymphocytes # (auto) 2.59 K/uL (1.20-3.40); Lymphocytes % (auto) 15.3 %; Mean Corpuscular Hemoglobin 28.6 pg (25.0-34.0); Mean Corpuscular Hgb Conc 32.6 g/dL (32.0-36.0); Mean Corpuscular Volume 87.7 fL (80.0-100.0); Mean Platelet Volume 9.8 fL (9.4-12.4); Monocytes # (auto) 1.36 K/uL (0.11-0.59); Neutrophils # (auto) 12.76 K/uL (1.40-6.50); Neutrophils % (auto) 75.3 %; Platelet Count 444 K/uL (130-400); RDW Coefficient of Variation 13.6 % (11.5-14.5); RDW Standard Deviation 43.5 fL (36.4-46.3); Red Blood Count 5.38 M/uL (4.20-5.40); White Blood Count 16.95 K/ul (4.8-10.8)
[2024-03-13 10:44] LABS: BUN Creatinine Ratio 33.8 (10-20); Creatinine Clr Calc Pharmacy 22.3 ml/min; Magnesium 2.3 mg/dl (1.7-2.4); Potassium 3.6 mmol/L (3.5-5.1)
[2024-03-13] MEDS: METOPROLOL TARTRATE 1 MG/ML VIAL IV STA ×2 (10:44→11:22)
--- NOTE | 2024-03-13 10:58 | CT Scan Report ---
CT head/brain wo con CLINICAL HISTORY: syncope Technique: Contiguous axial CT images of the head were acquired from the base of the skull to the oscar tiffanie without intravenous contrast administration. Images were viewed in brain, subdural and bone [facility]. Automated dose lowering techniques and/or adjustment according to patient size were utilized for this exam. Comparison: None available at the time of this dictation. Findings: The ventricles, basal cisterns, and cerebral sulci are normal. There is no acute intracranial hemorrh age or evidence of acute territorial infarction. Neither mass effect, shift of the midline structures , nor abnormal extra-axial fluid collections are shown. Left maxillary sinus disease is noted. The orbits appear normal. There are no acute fractures of the calvaria or scalp swelling. Impression: No acute intracranial hemorrhage, no evidence of acute territorial infarction or other acute intracra nial disease process. ACT 112: Negative or not required by law. Electronically signed by: Maximo Venegas M.D. 03/13/2024 10:57 AM
[2024-03-13 10:59] LABS: Thyroid Stimulating Hormone 3.466 uIu/ml (0.300-4.500)
[2024-03-13 11:02] LABS: Troponin I High Sensitivity 135.3 pg/ml (0-14)
--- NOTE | 2024-03-13 11:48 | History & Physical Report ---
Date of Service March 13, 2024 Assessment & Plan (1) Syncopal episodes: (2) Atrial fibrillation with RVR: Plan 88-year-old female PMHx A-fib on Eliquis, vitamin D deficiency, HTN, OP, history of basal cell carcinoma and malignant tumor of the urinary bladder, GERD, dyslipidemia, COPD/asthma with recent COVID infection on prednisone, who presents to ED after 2 syncopal events. Patient was in the ER at [facility] visiting her and received unwanted news at that time. Had stepped out of the room and had 2 syncopal events at that time. Also found to have elevated troponin upon workup, 135.3. CXR with lung opacity and EKG revealing A-fib RVR. #Syncopal event H/o of syncopal event x 2 while in ED visiting her . Had received unwanted news regarding her 's health condition, she had stepped out of the room felt a little weak and had an episode of syncope x 2. Was caught both times, did not collapse completely to the ground. Witnessed by son and staff at [facility]; no symptoms prior to event; no seizure-like activity; no confusion following event. Did not take a.m. medications and does have a history of paroxysmal A-fib. Had some hypotension but also received IV lopressor for rapid afib in ED - Admit med tele - BP meds- Losartan 100, HCTZ 25 - HOLD - CBC with leukocytosis and neutrophil predominant, CXR with questionable opacities (known pulmonary nodules), and pending UA- patient has been taking prednisone for prior diagnosis of COVID; reported no additional infectious symptoms to include fever/chills, cough, URI symptoms, LUTS, or abdominal pain; pending procal - No infectious symptoms at this time w/o clear etiology of leukocytosis- defer antibiotics at time of admission - Troponin 135.3, pending repeat, will continue to trend; EKG without signs of ischemia, revealing A-fib with RVR; denies chest pain - CT head without acute findings - Had dobutamine stress echo 08/2021; pending repeat echo - Magnesium 2.3, TSH 3.466, glucose 138 - Received 1L NSS in ED, will continue with fluid resuscitation of additional 1L NSS @80 ml/hr #Elevated troponin Recent syncopal event in ED after receiving unwanted news about family member; no current chest pain, SOB, or palpitations - Troponin 135.3, pending repeats; EKG Afib w/ RVR, without ischemic changes - Likely 2/2 demand; will monitor on tele #A-fib with RVR H/o paroxysmal Afib/A-flutter; follows with cardiology, most recent visit 09/08/2023 - Rate rate on arrival 138 and revealing A-fib on monitor; during visit rate was 90-100s, still in A-fib - Home medications metoprolol and Eliquis; has not taken a.m. medications - Dobutamine echo August 2021 without evidence of inducible ischemia; pending repeat echo - Received Lopressor 5 mg IV in ED x 2; Will give pt 1/2 of normal dose of metoprolol on admission - 50 mg; increase back to normal dose before d/c #ETHAN Likely secondary to renal hypoperfusion from dehydration, hypotension - Cr 1.51, BUN 51, ratio 33.8 - Received 1L NSS in ED; continue to promote oral; hold losartan + HCTZ - BMP a.m. #Asymptomatic bacteriuria No LUTS or hematuria - UA show trace protein, 1+ LE, presence of WBC, hyaline cast, and 4+ bacteria; Pending cx - No abx at time of admission given no symptoms, will follow culture and adjust as appropriate #COVID COVID-19 diagnosed 03/03, started on Paxlovid + course of prednisone (03/03); no current symptoms of F/C, SOB, cough, URI symptoms. CXR with infiltrates but Procalcitonin negative so not likely bacterial secondary PNA - Leukocytosis w/ neutrophil predominance, completing course of prednisone; CXR w/ bilateral airspace opacities - Initially hypoxic, improving on RA; O2 via NC prn, maintain >/= 94%; wean as patient tolerates - DuoNeb q6hr + inhalers + complete course of prednisone 40mg - Started 03/03; follow taper (3 tabs x 5 days, 2 tabs x 5 days, 1 tab x 5 days) - Starting last 5 days (1 tab until 03/17) - Isolation precautions for 1 day; 03/14 is technically past 10 days since dx #Malignant tumor of urinary bladder-follows with urology, most recently 12/2023; cystoscopy 12/2022 revealing "more tumors" s/p > 6-week course of BCG #Dyslipidemia- Atorvastatin 20mg #COPD + asthma- Continue inhalers, follows with pulmonary/allergy; Advair, Spiriva, Singulair, Xolair 375 mg SQ every 2 weeks; history of bilateral pulmonary nodules, stable with largest being 10 mm bilobed nodule in RML per allergy note (11/2023) -continue prednisone course for COVID #HTN- holding home Losartan 100mg, HCTZ 25mg #GERD-omeprazole Dispo: Admit med/tele, hopeful for dc to home tomorrow so she can go be with her who got transferred to [place] urgently this AM VTE Prophylaxis: Eliquis This document was dictated utilizing Cazoomi. Please excuse any grammatical errors that may be secondary to use of this software. Admission and Anticipated Discharge Date Admission Date: 03/13/2024 History of Present Illness Chief Complaint: Syncopal event Primary Care Provider: Dalila Jones MD 88-year-old female PMHx A-fib on anticoagulation, vitamin D deficiency, HTN, OP, history of basal cell carcinoma and malignant tumor of the urinary bladder, GERD, dyslipidemia, COPD/asthma, and recent COVID infection on prednisone c addie, who presents to ED after 2 syncopal events. Patient was in the ER at [facility] visiting her and received unwanted news at that time. Patient stepped out of the room for an x-ray to be taken on her and at that time, had a syncopal event collapsing on the floor with professor of nursing. She states that she felt a little weak at that time but mainly just felt anxious. Did not have any symptoms prior to this event to include chest pain, shortness of breath, palpitations, or headache. Following this, the patient was brought to the trauma bay for evaluation. Was initially complaining of mild lightheadedness, but on my evaluation states that she feels fine and is not experiencing this anymore. States she did not have breakfast this morning and did not take her morning medications. States she may have felt a little shaky but thinks is because she was not eating. Has had increase stress in her life, causing her to feel anxious. Otherwise denying chest pain, shortness of breath, palpitations, back pain, abdominal pain, N/V/D/C, headaches, weakness, or prior episodes of syncope. No URI symptoms. Patient does have elevated troponin upon evaluation at 135.3. Her EKG reveals A-fib with RVR, no signs of ischemia. Received 2 doses of metoprolol tartrate 5 mg in ED as well as 1 L NSS. Please see Dr. Mack's attestation for adjustments/additions to treatment plan. Allergies Allergy/AdvReac Type Severity Reaction Status Date / Time Penicillins Allergy Severe HIVES, Verified 03/03/24 13:33 SWELLING, SOB Home Medications Medication Instructions Recorded Confirmed Type albuterol sulfate 2.5 mg/3 mL 2.5 mg (3 mL) inhalation QID PRN 06/06/21 03/13/24 Rx (0.083 %) solution for nebulization shortness of breath or wheezing #90 mL losartan 100 mg tablet 100 mg PO DAILY #90 tabs 02/25/23 03/13/24 Rx montelukast 10 mg tablet 10 mg PO DAILY #90 tabs 07/21/23 03/13/24 Rx omeprazole 20 mg capsule,delayed 20 mg PO DAILY #30 caps 08/03/23 03/13/24 Rx release omalizumab 150 mg subcutaneous See Rx Instructions .Route 09/23/23 03/13/24 Rx solution (Xolair) .COMPLEX #6 ea hydrochlorothiazide 25 mg tablet 25 mg PO DAILY #90 tabs 10/26/23 03/13/24 Rx fluticasone 500 mcg-salmeterol 50 See Rx Instructions .Route 12/03/23 03/13/24 Rx mcg/dose blistr powdr for .COMPLEX #60 blisters inhalation tiotropium bromide 18 mcg capsule 1 cap inhalation DAILY #30 02/02/24 03/13/24 Rx with inhalation device (Spiriva inhalations with HandiHaler) atorvastatin 10 mg tablet 10 mg PO QPM #90 tabs 02/03/24 03/13/24 Rx prednisone 20 mg tablet See Rx Instructions PO .COMPLEX 03/03/24 Rx #30 tabs metoprolol succinate 100 mg 100 mg PO DAILY #90 tabs 03/11/24 03/13/24 Rx tablet,extended release 24 hr albuterol sulfate 90 mcg/actuation 1 - 2 puff inhalation Q4H PRN 03/13/24 03/13/24 History aerosol inhaler (Ventolin HFA) shortness of breath or wheezing apixaban 5 mg tablet (Eliquis) 5 mg PO BID 03/13/24 03/13/24 History Past Med/Surg History Problem List (Updated 03/13/24 @ 17:05 by Jared Coronado MD) Elevated troponin (Acute) Syncope and collapse (Acute) Atrial fibrillation with rapid ventricular response (Acute) Syncopal episodes Acute URI of multiple sites Encounter for pre-operative examination Hematuria Chronic anticoagulation Pain of left lower extremity Right leg pain Swelling of left lower extremity Encounter for examination following treatment at hospital Rapid atrial fibrillation Atrial flutter URI, acute Atrial fibrillation SVT (supraventricular tachycardia) Hypoxia Vitamin D deficiency Bilateral lower extremity edema Cough Palpitations (Acute) Benign hypertension (Acute) Allergic rhinitis Pityriasis rosea (Acute) Osteoporosis (Acute) Multiple pulmonary nodules (Chronic) Malignant tumor of urinary bladder (Chronic) History of basal cell carcinoma (Acute) GERD without esophagitis (Chronic) Dyslipidemia (Chronic) Chronic obstructive pulmonary disease (Chronic) Asthma (Chronic) Medical History Hypertension Carpal tunnel syndrome Surgical History History of carpal tunnel surgery History of bladder surgery Family History Mother Myocardial infarction Denies family history of Ovarian cancer Prostate cancer Bipolar disorder Colorectal cancer Social History Smoking Status: Never smoker Second Hand Exposure: No; Do You Dip or Chew Tobacco: No; Hx Alcohol Use: No Hx Substance Use: No Preferred Language: Setswana Communication Ability: Effective Visual Impairment: Limited Hearing Ability: Normal Flanging Roll Operator Required: No Beliefs That Will Affect Care: None marital status: Current Living Situation: Spouse Current Living Situation Comment: 2 story house current occupational status: retired How many Children do You have: 2 Feels Safe at Home: Yes Safety Concerns: Feels Safe At This Time Childhood Exposure to Second-Hand Smoke: No Diet: regular caffeine: Yes (Avoids when possible.) during the past year weight has: remained stable Dental Care, Regularly: No Physical Activity Frequency: Daily Seatbelt Use: always Sunscreen Use: Yes Do you think of yourself as: straight/heterosexual Gender Identity: Female Assistive Devices: Denture - Upper, Denture - Lower and Glasses Review of Systems Review of Systems: All systems reviewed & are unremarkable except as noted in Subjective Physical Exam Physical Exam: General: No acute distress Skin: Warm and dry, without rashes or lesions; no ecchymosis Head: Normocephalic, atraumatic Eyes: PERRL, conjunctivae clear, sclera non-icteric ENT: External ear and ear canal without swelling; nose atraumatic; dentures, tongue normal appearance, oropharynx appearing dry Neck: Supple, no LAD Cardio: Tachycardic (between 90s to 100s), irregularly irregular rhythm, no M/G/R, S1 and S2 normal Resp: No respiratory distress, Lungs CTA in all lobes bilaterally, no wheezes, rales, or rhonchi Abdomen: Soft, symmetric, nontender; o masses or hepatosplenomegaly; Bowel sounds normoactive MSK: No deformities, full ROM throughout; pulses palpable and equal; no edema. Neuro: Awake, alert; Muscle strength 4/5 bilaterally in UE/LE; Sensation intact bilaterally; CN grossly intact Psych: Appropriate mood and affect; good judgement and insight. Son is present in room at time of visit. Results & Data Results & Data Vital Signs (Past 12 Hours) Vital Signs Temp Pulse Pulse Resp BP BP Pulse Ox 03/13/24 11:22 119 H 149/89 H 03/13/24 10:50 110 H 16 144/88 H 93 03/13/24 10:49 117 H 20 144/88 H 95 03/13/24 10:46 129 H 03/13/24 10:44 143 H 122/85 03/13/24 10:42 135 H 19 136/81 94 03/13/24 10:42 136/81 03/13/24 10:42 141 H 14 136/81 93 03/13/24 10:40 86/57 L 03/13/24 10:30 162 H 18 96/70 L 91 03/13/24 10:10 133/80 03/13/24 10:03 161 H 24 90 03/13/24 10:03 90 03/13/24 10:03 36.9 C 138 H 24 133/80 90 O2 Del Method 03/13/24 11:22 03/13/24 10:50 Room Air 03/13/24 10:49 Room Air 03/13/24 10:46 03/13/24 10:44 03/13/24 10:42 Room Air 03/13/24 10:42 03/13/24 10:42 03/13/24 10:40 03/13/24 10:30 Room Air 03/13/24 10:10 03/13/24 10:03 Room Air 03/13/24 10:03 Room Air 03/13/24 10:03 Room Air Laboratory Results 03/13/24 03/13/24 10:15 10:07 WBC 16.95 H RBC 5.38 Hgb 15.4 Hct 47.2 H MCV 87.7 MCH 28.6 MCHC 32.6 RDW Std Deviation 43.5 RDW Coeff of Dali 13.6 Plt Count 444 H MPV 9.8 Immature Gran % (Auto) 0.9 Neut % (Auto) 75.3 Lymph % (Auto) 15.3 Benton % (Auto) 8.0 Eos % (Auto) 0.4 Baso % (Auto) 0.1 Neut # (Auto) 12.76 H Lymph # (Auto) 2.59 Benton # (Auto) 1.36 H Eos # (Auto) 0.07 Baso # (Auto) 0.02 Immature Gran # (Auto) 0.15 Sodium 139 Potassium 3.6 Chloride 97 L Carbon Dioxide 34 H Anion Gap 8 BUN 51 H Creatinine 1.51 H Est Cr Clr Drug Dosing 22.3 eGFR 32.84 BUN/Creatinine Ratio 33.8 H Glucose 138 H POC Glucose 129 H Calcium 9.0 Magnesium 2.3 Troponin I High Sens 135.3 H* TSH 3.[address] 03/13/24 10:05 CT head/brain wo con CLINICAL HISTORY: syncope Technique: Contiguous axial CT images of the head were acquired from the base of the skull to the vertex without intravenous contrast administration. Images were viewed in brain, subdural and bone windows. Automated dose lowering techniques and/or adjustment according to patient size were utilized for this exam. Comparison: None available at the time of this dictation. Findings: The ventricles, basal cisterns, and cerebral sulci are normal. There is no acute intracranial hemorrhage or evidence of acute territorial infarction. Neither mass effect, shift of the midline structures, nor abnormal extra-axial fluid collections are shown. Left maxillary sinus disease is noted. The orbits appear normal. There are no acute fractures of the calvaria or scalp swelling. Impression: No acute intracranial hemorrhage, no evidence of acute territorial infarction or other acute intracranial disease process. ACT 112: Negative or not required by law. Electronically signed by: Maximo Venegas M.D. 03/13/2024 10:57 AM Chest X-Ray 03/13/24 10:06 XR chest 1V portable CLINICAL HISTORY: syncope TECHNIQUE: Single frontal radiograph of the chest was obtained. Comparison: Comparison is made to chest radiograph 01/20/2022 FINDINGS: No lines and tubes are seen. Calcified aortic knob is seen. Right lower lung airspace opacity is seen. No evidence of pleural effusion or pneumothorax. IMPRESSION: Bilateral airspace opacity. This may represent atelectasis, pneumonia, and/or aspiration. ACT 112: Negative or not required by law. Electronically signed by: Maximo Venegas M.D. 03/13/2024 10:24 AM Medications Administered Metoprolol tartrate 5mg IV x 2 NSS 1L x 1 ECG Additional Comments: A-fib with RVR, ST and T wave abnormality Rate 143, NH *, QRS 72, QT/QTc 300/463, PRT axis */53/-33 Code Status & VTE Plan Code Status Full VTE Prophylaxis Plan VTE Prophylaxis will be ordered: Yes Supervising Physician Co-Signing Physician Notes VIJAY Suh Note: I personally saw and examined the patient. I verified all metcalf points and agree with VIJAY Huff with the following exceptions and/or additions: S-Pt here after passing out in the ED while accompanying her , was in rapid afib, hypotensive. Denies chest pain, did not get injured as she was causght by bystander. Pt seen later after she converted to NSR History and ROS reviewed as above O- Vitals reviewed Gen: [AAOx3, NAD] HEENT: [anicteric sclerae, EOMI] CV: [RRR no mgr nl S1S2] Pulm: [CTAB no wcr] A/P-88 yo female here with syncope with rapid afib, hypotension Improving, elevated trop-trend but likely demand ischemia in setting of rapid afib and hypotension Mild ETHAN, giving fluids, hold home losartan, HCTZ, follow BMP PG Care Time/CCT Total # of Minutes Spent Total Time Spent with Patient: Total time spent is greater than 50% in coordination of care (as documented) at patient's floor/unit and/or counseling patient: Coding Level of Care Code 64724 INT INP/OBS CARE 3/75MIN Diagnoses Syncopal episodes R55 Atrial fibrillation with RVR I48.91
[2024-03-13] MEDS: METOPROLOL SUCC 50MG EXT REL TAB PO STA (12:48)
[2024-03-13] MEDS: SODIUM CHLORIDE 0.9% 1,000 ML IV SCH (12:48)
[2024-03-13] MEDS: APIXABAN 5 MG TABLET PO ONE (12:48)
--- NOTE | 2024-03-13 15:22 | Electrocardiogram Report ---
Test Reason : Blood Pressure : */* mmHG Vent. Rate : 143 BPM Atrial Rate : * BPM P-R Int : * ms QRS Dur : 72 ms QT Int : 300 ms P-R-T Axes : * 53 -33 degrees QTcB Int : 463 ms Atrial fibrillation with rapid ventricular response Abnormal ECG When compared with ECG of 05-Feb-2022 13:35, (unconfirmed) Atrial fibrillation has replaced Sinus rhythm Vent. rate has increased by 67 bpm Non-specific change in ST segment in Inferior leads Non-specific change in ST segment in Anterolateral leads T wave inversion no longer evident in Anterior leads T wave inversion now evident in Lateral leads Confirmed by Medina Motta (Teri) on 03/13/2024 3:22:20 PM Referred By: REFERRED SELF Confirmed By: Medina Motta
[2024-03-13 15:58] LABS: Appearance Urine Clear (Clear); Bacteria Urine Automated 4+ (None Seen); Bilirubin Urine Negative (Negative); Blood Urine Negative (Negative); Color Urine Yellow; Epithelial Cell Urine Auto 0-2 /hpf (0-2); Glucose Urine UA Negative (Negative); Ketones Urine Negative (Negative); Leukocyte Esterase Urine 1+ (Negative); Nitrite Urine Negative (Negative); Protein Urine Trace (Negative); RBC Urine Automated 0-2 /hpf (0-2); Specific Gravity Urine 1.013 (1.000-1.030); Urobilinogen Urine Negative (Negative); pH Urine 6.5 (4.5-7.5)
[2024-03-13] MEDS ORDERED: ACETAMINOPHEN 325 MG TAB PO PRN (16:23)
[2024-03-13] MEDS ORDERED: MELATONIN 3 MG TAB PO PRN (16:23)
[2024-03-13] MEDS ORDERED: POLYETHYLENE (MIRALAX) 17 GM PACK PO PRN (16:23)
[2024-03-13] MEDS ORDERED: MAGNESIUM HYDROXIDE SUSP 30 ML UDC PO PRN (16:23)
[2024-03-13] MEDS ORDERED: ALBUTEROL 0.083% NEBU SOLN 3 ML VIAL INH PRN (18:29)
[2024-03-13] MEDS ORDERED: ALBUTEROL HFA 8 GM INHALER INH PRN (18:29)
[2024-03-13] MEDS: predniSONE 20 MG TAB PO SCH (20:25)
[2024-03-13] MEDS: APIXABAN 5 MG TABLET PO SCH (20:26)
[2024-03-13] MEDS: ATORVASTATIN 10 MG TAB PO SCH (20:26)
[2024-03-14 04:44] LABS: Hematocrit (blood only) 40.6 % (37.0-47.0); Hemoglobin 13.3 g/dl (12.0-16.0); Mean Corpuscular Hgb Conc 32.8 g/dL (32.0-36.0); Mean Corpuscular Volume 88.5 fL (80.0-100.0); Mean Platelet Volume 9.8 fL (9.4-12.4); Platelet Count 329 K/uL (130-400); RDW Coefficient of Variation 13.8 % (11.5-14.5); RDW Standard Deviation 44.2 fL (36.4-46.3); Red Blood Count 4.59 M/uL (4.20-5.40); White Blood Count 12.87 K/ul (4.8-10.8)
[2024-03-14 04:47] LABS: BUN Creatinine Ratio 35.6 (10-20); Calcium 7.8 mg/dl (8.6-10.3); Creatinine Clr Calc Pharmacy 28.3 ml/min; Potassium 4.2 mmol/L (3.5-5.1)
[2024-03-14 08:28] VITALS: RESP 20
[2024-03-14] MEDS ORDERED: LOSARTAN POTASSIUM 50 MG TAB PO SCH (09:00)
[2024-03-14] MEDS ORDERED: NON-FORMULARY MEDICATION (Omeprazole 20 mg capsule,delayed release(DR/EC)) PO SCH (09:00)
[2024-03-14] MEDS: FLUTICASONE/VILANTEROL 100/25MCG 14 PUFFS/INHALER INH SCH (09:20)
[2024-03-14] MEDS: PANTOprazole 40 MG TAB PO SCH (09:20)
[2024-03-14] MEDS: UMECLIDINIUM BROMIDE 62.5MCG/BLISTER 7 PUFFS/INHALER INH SCH (09:20)
[2024-03-14] MEDS: MONTELUKAST SODIUM 10 MG TABLET PO SCH (09:20)
[2024-03-14] MEDS: METOPROLOL SUCC 50MG EXT REL TAB PO SCH (09:20)
--- NOTE | 2024-03-14 10:22 | XCELERA ---
[id number]
[2024-03-14 11:09] VITALS: TEMP 97.9; O2SAT 93
[2024-03-14 11:37] VITALS: BP 152/82; PULSE 105
--- NOTE | 2024-03-14 18:58 | Discharge Summary ---
Discharge Summary Date of Service March 14, 2024 Principal Dx & Hospital Course #1 = Principal Diagnosis (1) Syncopal episodes: (2) Atrial fibrillation with RVR: Plan 88-year-old female PMHx A-fib on Eliquis, vitamin D deficiency, HTN, OP, history of basal cell carcinoma and malignant tumor of the urinary bladder, GERD, dyslipidemia, COPD/asthma with recent COVID infection on prednisone, who presents to ED after 2 syncopal events. Patient was in the ER at [facility] visiting her and received unwanted news at that time. Had stepped out of the room and had 2 syncopal events at that time. She was in rapid afib at the time. Also found to have elevated troponin upon workup, 135.3. CXR with lung opacity and EKG revealing A-fib RVR. #Syncopal event H/o of syncopal event x 2 while in ED visiting her . Had received unwanted news regarding her 's health condition, she had stepped out of the room felt a little weak and had an episode of syncope x 2. Was caught both times, did not collapse completely to the ground. Witnessed by son and staff at [facility]; no symptoms prior to event; no seizure-like activity; no confusion following event. Did not take a.m. medications and does have a history of paroxysmal A-fib. Had some hypotension but also received IV lopressor for rapid afib in ED Syncope related to rapid Afib - seems to have flipped into AF because of psychologic stress. Has fairly infrequent episodes of PAF No evidence of infection on admission testing. Recently had COVID and completing a predisone taper which explains her leukocytosis. Asymptomatic bacteriuria. CXR with opacities but known pulmonary nodules. No dyspnea hypoxia chest pain or DVT symptoms so PE unlikely Tele overnight unremarkable - has been in NSR. Had dobutamine stress echo 08/2021; repeat echo today unchanged from previous - EF 55-60% no rwma's, mild conc LVH and mild MR Mild HS-troponin elevation to 135 then downtrended, asymptomatic, no evidence of ACS -myocardial demand ischemia related to rapid afib and hypotension Continue metoprolol and apixaban for afib. #ETHAN Likely secondary to renal hypoperfusion from dehydration, hypotension -resolved Cr 1.5--> 1.18 with IV fluids overnight #Asymptomatic bacteriuria No LUTS or hematuria - UA show trace protein, 1+ LE, presence of WBC, hyaline cast, and 4+ bacteria; Pending cx - No abx at time of admission given no symptoms, will follow culture and adjust as appropriate #COVID COVID-19 diagnosed 03/03, started on Paxlovid + course of prednisone (03/03); no current symptoms of F/C, SOB, cough, URI symptoms. CXR with infiltrates but Procalcitonin negative so not likely bacterial secondary PNA - Leukocytosis w/ neutrophil predominance, completing course of prednisone; CXR w/ bilateral airspace opacities complete course of prednisone 40mg - Started 03/03; follow taper (3 tabs x 5 days, 2 tabs x 5 days, 1 tab x 5 days) - Starting last 5 days (1 tab until 03/17) #Malignant tumor of urinary bladder-follows with urology, most recently 12/2023; cystoscopy 12/2022 revealing "more tumors" s/p > 6-week course of BCG #Dyslipidemia- Atorvastatin 20mg #COPD + asthma- Continue inhalers, follows with pulmonary/allergy; Advair, Spiriva, Singulair, Xolair 375 mg SQ every 2 weeks; history of bilateral pulmonary nodules, stable with largest being 10 mm bilobed nodule in RML per allergy note (11/2023) -continue prednisone course for COVID #HTN- resumed home Losartan 100mg, HCTZ 25mg on discharge #GERD-omeprazole I updated her son at bedside Admission HPI Per Admitting Provider 88-year-old female PMHx A-fib on anticoagulation, vitamin D deficiency, HTN, OP, history of basal cell carcinoma and malignant tumor of the urinary bladder, GERD, dyslipidemia, COPD/asthma, and recent COVID infection on prednisone currently, who presents to ED after 2 syncopal events. Patient was in the ER at [facility] visiting her and received unwanted news at that time. 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 She states that she felt a little weak at that time but mainly just felt anxious. Did not have any symptoms prior to this event to include chest pain, shortness of breath, palpitations, or headache. Following this, the patient was brought to the trauma bay for evaluation. Was initially complaining of mild lightheadedness, but on my evaluation states that she feels fine and is not experiencing this anymore. States she did not have breakfast this morning and did not take her morning medications. States she may have felt a little shaky but thinks is because she was not eating. Has had increase stress in her life, causing her to feel anxious. Otherwise denying chest pain, shortness of breath, palpitations, back pain, abdominal pain, N/V/D/C, headaches, weakness, or prior episodes of syncope. No URI symptoms. Patient does have elevated troponin upon evaluation at 135.3. Her EKG reveals A-fib with RVR, no signs of ischemia. Received 2 doses of metoprolol tartrate 5 mg in ED as well as 1 L NSS. Please see Dr. Mack's attestation for adjustments/additions to treatment plan. Discharge Plan Discharge Items Patient Disposition: Home - Self-Care Reason For Visit: SNYCOPAL EVENT, ELEVATED TROPONIN Discharge Diagnosis: Syncope secondary to afib with rapid rate causing hypotension Activity: Resume your previous activity Non-emergency contact: Primary Care Provider and Home Insurance Agent Call non-emergency contact if: you have any medication questions and your symptoms worsen Follow-up/Referrals: Jose Jones MD [Physician] - 03/22/24 1:00 pm (appt with Bruno Sanchez) Dalila Jones MD [Primary Care Provider] - 03/22/24 11:30 am Diet: Regular Addtl Attending Provider Instructions: You had an episode of passing out (syncope) caused by rapid Afib with drop in blood pressure Based on labs you might have been mildly dehydrated Your Echo looked good - no changes from before. Good heart squeeze and valves ok. Complete the prednisone taper you were already taking It was a pleasure taking care of you in the hospital, Klarissa Parra MD Pending Studies at Discharge: No Stand-Alone Forms: My [employer], Smoking Cessation Medications and DC Order Prescriptions: Continued losartan 100 mg tablet 100 mg PO DAILY Qty: 90 3RF montelukast 10 mg tablet 10 mg PO DAILY Qty: 90 1RF omeprazole 20 mg capsule,delayed release(DR/EC) 20 mg PO DAILY Qty: 30 11RF Xolair 150 mg recon soln See Rx Instructions .ROUTE .COMPLEX Qty: 6 11RF Dose Instruction: INJECT 375MG SUBCUTANEOUSLY EVERY 2 WEEKS. Rx Instructions: INJECT 375MG SUBCUTANEOUSLY EVERY 2 WEEKS APPROVED GOOD 03/16/23-09/22/24 hydrochlorothiazide 25 mg tablet 25 mg PO DAILY Qty: 90 3RF fluticasone propion-salmeterol 500-50 mcg/dose blister with device See Rx Instructions .ROUTE .COMPLEX Qty: 60 3RF Dose Instruction: USE 1 INHALATION TWICE A DAY-RINSE MOUTH AFTERWARDS Rx Instructions: USE 1 INHALATION TWICE A DAY-RINSE MOUTH AFTERWARDS Spiriva with HandiHaler 18 mcg capsule, w/inhalation device 1 cap inhalation DAILY Qty: 30 11RF Rx Instructions: INHALE THE CONTENTS OF 1 CAPSULE BY MOUTH EVERY DAY. atorvastatin 10 mg tablet 10 mg PO QPM Qty: 90 1RF metoprolol succinate 100 mg tablet extended release 24 hr 100 mg PO DAILY Qty: 90 3RF albuterol sulfate 2.5 mg /3 mL (0.083 %) solution for nebulization 2.5 mg inhalation QID PRN (Reason: shortness of breath or wheezing) Qty: 90 3RF prednisone 20 mg tablet See Rx Instructions PO .COMPLEX Qty: 30 0RF Rx Instructions: 3 tabs PO daily X 5 days, then 2 tabs PO daily X 5 days, then 1 tab PO daily X 5 days, then stop. omalizumab 150 mg/mL syringe 375 mg subcut ONCE Qty: 2.5 0RF albuterol sulfate [Ventolin HFA] 90 mcg/actuation HFA aerosol inhaler 1 - 2 puff inhalation Q4H PRN (Reason: shortness of breath or wheezing) Rx Instructions: 1-2 puffs inhalation q4h PRN; Eliquis 5 mg tablet 5 mg PO BID Discontinued Fluzone High-Dose Triv 24-25 180 mcg/0.5 mL syringe 0.5 ml IM ONCE Qty: 0.5 0RF Discharge Orders: Discharge Order (Routine); Ordered 03/14/24 Ordered By: Klarissa Parra Admission Data Admit Date/Time: 03/13/24 11:44 Attending Provider: Klarissa Parra Admit Provider: Kaylin Mack Primary Care Provider: Dalila Jones Other Providers: Kaylin Mack Other Interventions: Discharge Summary Assessment (RN) Last Done: 03/14/24 11:37 Hospital Stay Data Consultations 03/13/24 11:13 ED Decision to Admit Stat Diagnostic Imagining Performed 03/13/24 10:05 CT head/brain wo con Stat Pending Results Patient Have Any Pending Studies at Discharge: No Discharge Instructions Given to Patient (Per Discharging Provider) You had an episode of passing out (syncope) caused by rapid Afib with drop in blood pressure Based on labs you might have been mildly dehydrated Your Echo looked good - no changes from before. Good heart squeeze and valves ok. Complete the prednisone taper you were already taking It was a pleasure taking care of you in the hospital, Klarissa Parra MD Total Time Total Time Spent Total Time Spent (In Minutes): I personally spent: 40 minutes today on clinical care activities including: reviewing chart notes and vital signs reviewing labs reviewing studies examining and counseling the patient counseling the patient's family writing orders writing prescriptions, discharge instructions documentation Coding Level of Care Code 16060 INP/OBS DISCH >30 MIN Diagnoses Syncopal episodes R55 Atrial fibrillation with RVR I48.91
== END 2024-03-14 12:58 | disposition home or self-care (01) ==
LOC: 2W 10:03 → ED 10:03 → SUATTDRO 11:44 → 2W 15:54